=== PATIENT | male | born 1970 | race Caucasian/White ===

== ENCOUNTER 2016-05-03 03:08 | Emergency (ER) | payer OTHER ==
[~2016-05-03] VITALS: Ht 177.8 cm; Wt 79.5 kg
[2016-05-03 03:12] VITALS: Ht 177.8 cm; Wt 79.5 kg
--- NOTE | 2016-05-03 03:42 | ERD ---
ER Documentation Chief Complaint Date/Time DATE: 05/03/16 TIME: 03:41 Chief Complaint used "speed" yesterday, c/o swelling hands and feet HPI This is a 47 mL studies methamphetamines yesterday. Complains of swelling of his hands and feet today. Patient has decided to leave the hospital. He is alert and oriented 4 with goal oriented speech and good decision-making capacity. ROS All systems reviewed and are negative except as per history of present illness. Allergies Allergies: Coded Allergies: No Known Allergies (Verified Allergy, Mild, 07/10/11) PMhx/Soc History of Surgery: Yes (back surgery) Anesthesia Reaction: No Hx Neurological Disorder: No Hx Respiratory Disorders: No Hx Cardiac Disorders: No Hx Psychiatric Problems: No Hx Miscellaneous Medical Probl: No Hx Alcohol Use: Yes Hx Substance Use: No Hx Tobacco Use: Yes Physical Exam Vitals Vital Signs Date Time Temp Pulse Resp B/P Pulse Ox O2 Delivery O2 Flow Rate FiO2 05/03/16 03:12 97.8 102 18 136/89 96 Physical Exam Const: [] Head: Atraumatic Eyes: Normal Conjunctiva ENT: Normal External Ears, Nose and Mouth. Neck: Full range of motion..~ No meningismus. Resp: Clear to auscultation bilaterally Cardio: Regular rate and rhythm, no murmurs Abd: Soft, non tender, non distended. Normal bowel sounds Skin: No petechiae or rashes Back: No midline or flank tenderness Ext: No cyanosis, or edema Neur: Awake and alert Psych: Normal Mood and Affect Results 24 hrs Current Medications Medications (Trade) Dose Ordered Sig/[place] Route PRN Reason Start Time Stop Time Status Last Admin Dose Admin Lorazepam (Ativan) 2 mg ONCE ONCE IM 05/03/16 04:00 05/03/16 04:01 Procedures/MDM Medical decision-making: Patient comes in essentially for methamphetamine abuse. He is a little prior to full treatment and evaluation. He is alert and oriented 4 with goal oriented speech prior to elopement Departure Diagnosis: Primary Impression: Drug use Condition: Stable TEE RÍOS May 03, 2016 03:42
[2016-05-03] MEDS ORDERED: LORAZEPAM 2 MG INJ IM ONE (04:00)
== END 2016-05-03 04:02 | disposition left against medical advice (07) ==
LOC: E/R 03:08
DX: F15.20 Other stimulant dependence, uncomplicated (principal); F17.210 Nicotine dependence, cigarettes, uncomplicated
CPT/HCPCS: 99282; J2060

== ENCOUNTER 2016-07-30 04:15 | Emergency (ER) | payer OTHER ==
[~2016-07-30] VITALS: Ht 177.8 cm; Wt 75.0 kg
[2016-07-30 04:37] VITALS: Ht 177.8 cm; Wt 75.0 kg
[2016-07-30] MEDS ORDERED: KETOROLAC 30 MG INJ IV STA (04:41)
--- NOTE | 2016-07-30 05:27 | RADRPT ---
PROCEDURE: CT Abdomen and pelvis without contrast. CLINICAL INDICATION: Abdominal pain. TECHNIQUE: CT scan of the abdomen and pelvis was performed on a multi-detector high-resolution CT scanner. Contiguous axial images were obtained from the lung bases to the ischial tuberosities wit hout intravenous contrast. Coronal and sagittal reformatted images were also obtained. Images were reviewed on the PACS workstation. One or more of the following dose reduction techniques were used: - Automated exposure control. - Adjustment of the mA and/or kV according to patient size. - Use of iterative reconstruction technique. Exam CTD/vol = 7.66 mGy. Total exam DLP = 462.82 mGy-cm. COMPARISON: None. FINDINGS: Evaluation of the lung bases demonstrates no pleural or parenchymal disease. Abdomen: The liver is normal in size. There is no focal mass or dilatation of the biliary tree. T he gallbladder is not distended. The spleen, pancreas and bilateral adrenal glands are within dilshad l limits. Bilateral kidneys are normal in size with no contour deforming mass identified. There is a 2 mm calculus within the upper pole of the right kidney. There are two calculi within the mid le ft kidney measuring 4 mm and 2 mm. There is no radiopaque ureteral calculus identified. There is n o hydronephrosis or hydroureter. There is no retroperitoneal adenopathy. The abdominal aorta is of normal caliber with scattered atherosclerotic calcifications. There is no abnormal bowel wall thickening or distension. There is no bowel obstruction or free air . A normal appendix is partially visualized. There is no diverticulosis or diverticulitis. There is no ascites. Pelvis: The bladder is unremarkable. The prostate and seminal vesicles are within normal limits. There is no significant pelvic adenopathy or free fluid. Evaluation of the osseous structures demonstrates no suspicious lytic or blastic lesion. There is mo derate discogenic disease at L3-L4, L4-L5 and L5-S1. IMPRESSION: No acute abnormality identified within the abdomen and pelvis. Bilateral nonobstructing renal calculi. Mild vascular calcifications reflective of atherosclerosis. .Jerson Kaplan MD, Date Time Electronically viewed and signed by .Jerson Kaplan MD, MD on 07/30/2016 05:26 .T/
[2016-07-30 05:34] LABS: ADD SCAN DIFF NO
[2016-07-30 05:37] LABS: BASOPHILS % 0.3 % (0.0-2.0); EOSINOPHILS % 0.5 % (0.0-7.0); HEMOGLOBIN 15.4 g/dl (14.0-18.0); LYMPHOCYTES # 1.5 10^3/ul (0.8-2.9); LYMPHOCYTES % 19.7 % (15.0-51.0); MEAN CORPUSCULAR HEMOGLOBIN 30.7 pg (29.0-33.0); MEAN CORPUSCULAR HGB CONC 34.2 g/dl (32.0-37.0); MEAN CORPUSCULAR VOLUME 89.8 fl (82.0-101.0); MEAN PLATELET VOLUME 9.7 fl (7.4-10.4); MONOCYTE # 0.3 10^3/ul (0.3-0.9); MONOCYTES % 4.2 % (0.0-11.0); NEUTROPHIL # 5.8 10^3/ul (1.6-7.5); PLATELET COUNT 311 10^3/UL (140-415); RED BLOOD COUNT 5.01 10^6/ul (4.70-6.10); RED CELL DISTRIBUTION WIDTH 12.4 % (11.5-14.5); WHITE BLOOD COUNT 7.7 10^3/ul (4.8-10.8)
[2016-07-30 05:53] LABS: ALBUMIN/GLOBULIN RATIO 1.17; BILIRUBIN,INDIRECT 0.4 mg/dl (0-1.1); BILIRUBIN,TOTAL 0.4 mg/dl (0.2-1.3); CALCIUM 9.5 mg/dl (8.4-10.2); CREATININE 0.8 mg/dl (0.61-1.24); POTASSIUM 3.6 mmol/L (3.5-5.1); TOTAL PROTEIN 7.4 g/dl (6.1-8.1)
[2016-07-30] MEDS ORDERED: IBUP-1542 PO (05:59)
[2016-07-30] MEDS ORDERED: LOPE2CAP PO (05:59)
[2016-07-30] MEDS ORDERED: ONDANSETRON 4 MG INJ IV ONE (06:00)
[2016-07-30] MEDS ORDERED: HYDROCODONE/APAP (10/325) TAB PO ONE (06:00)
--- NOTE | 2016-07-30 06:18 | ERA ---
ER Documentation Chief Complaint Date/Time DATE: 07/30/16 TIME: 06:15 Chief Complaint Abdominal pain HPI The patient is a 46-year-old male, presenting to the ER because of diffuse abdominal discomfort, associated with diarrhea for the last few hours. He denies any emesis hematochezia, denies fever, chills, neck pain, chest pain, dyspnea, vomiting, dysuria. He smokes and drinks, denies illicit drug Past medical history: None Past surgical history: Back surgery ROS All systems reviewed and are negative except as per history of present illness. Medications Home Meds Active Scripts Loperamide Hcl* (Imodium*) 2 Mg Capsule, 2 MG PO QID Y for DIARRHEA, #14 CAP MAX 16 mg/day Prov:PAOLA NELSON MD 07/30/16 Ibuprofen* (Motrin*) 600 Mg Tab, 600 MG PO Q6H Y for PAIN AND OR ELEVATED TEMP, #20 TAB Prov:PAOLA NELSON MD 07/30/16 Allergies Allergies: Coded Allergies: No Known Allergies (Unverified Allergy, Mild, 07/30/16) PMhx/Soc History of Surgery: Yes (back surgery) Anesthesia Reaction: No Hx Neurological Disorder: No Hx Respiratory Disorders: No Hx Cardiac Disorders: No Hx Psychiatric Problems: No Hx Miscellaneous Medical Probl: Yes (hep C, colitis) Hx Alcohol Use: No (denies) Hx Substance Use: Yes (speed) Hx Tobacco Use: Yes Smoking Status: Current every day smoker Physical Exam Vitals Vital Signs Date Time Temp Pulse Resp B/P Pulse Ox O2 Delivery O2 Flow Rate FiO2 07/30/16 04:37 97.6 75 18 161/104 100 Physical Exam Const: No acute distress. Head: Atraumatic. Eyes: Normal Conjunctiva. ENT: Normal External Ears, Nose and Mouth. Neck: Full range of motion. No meningismus. Resp: Clear to auscultation bilaterally. Cardio: Regular rate and rhythm, no murmurs. Abd: Soft, non distended, normal bowel sounds, vague and diffuse abdominal discomfort, no rigidity, rebound, CVA tenderness Skin: No petechiae or rashes. Back: No midline or flank tenderness. Ext: No cyanosis, or edema. Neur: Awake and alert. No focal deficit Psych: Normal Mood and Affect. Result Diagram: 07/30/169 07/30/16448 Results 24 hrs Laboratory Tests Test 07/30/16 04:49 White Blood Count 7.710^3/ul Red Blood Count 5.0110^6/ul Hemoglobin 15.4g/dl Hematocrit 45.0% Mean Corpuscular Volume 89.8fl Mean Corpuscular Hemoglobin 30.7pg Mean Corpuscular Hemoglobin Concent 34.2g/dl Red Cell Distribution Width 12.4% Platelet Count 00803^3/UL Mean Platelet Volume 9.7fl Neutrophils % 75.0% Lymphocytes % 19.7% Monocytes % 4.2% Eosinophils % 0.5% Basophils % 0.3% Nucleated Red Blood Cells % 0.0/100WBC Neutrophils # 5.810^3/ul Lymphocytes # 1.510^3/ul Monocytes # 0.310^3/ul Eosinophils # 0.010^3/ul Basophils # 0.010^3/ul Nucleated Red Blood Cells # 0.010^3/ul Sodium Level 135mmol/L Potassium Level 3.6mmol/L Chloride Level 101mmol/L Carbon Dioxide Level 27mmol/L Anion Gap 11 Blood Urea Nitrogen 17mg/dl Creatinine 0.80mg/dl Glucose Level 127mg/dl Calcium Level 9.5mg/dl Total Bilirubin 0.4mg/dl Direct Bilirubin 0.00mg/dl Indirect Bilirubin 0.4mg/dl Aspartate Amino Transf (AST/SGOT) 35IU/L Alanine Aminotransferase (ALT/SGPT) 49IU/L Alkaline Phosphatase 150IU/L Total Protein 7.4g/dl Albumin 4.0g/dl Globulin 3.40g/dl Albumin/Globulin Ratio 1.17 Lipase 95U/L Current Medications Medications (Trade) Dose Ordered Sig/[place] Route PRN Reason Start Time Stop Time Status Last Admin Dose Admin Ketorolac Tromethamine (Toradol) 30 mg ONCE STAT IV 07/30/16 04:41 07/30/16 04:42 DC 07/30/16 04:54 Acetaminophen/ Hydrocodone Bitart ([place] (10/325)) 1 tab ONCE ONCE PO 07/30/16 06:00 07/30/16 06:01 DC Ondansetron HCl (Zofran Inj) 4 mg ONCE ONCE IV 07/30/16 06:00 07/30/16 06:01 DC Procedures/[place] [address] Radiology Main Line: [phone] DIAGNOSTIC IMAGING REPORT Patient: DANIELLE HALLMAN : 1970 Age: 46 Sex: M MR #: [id number] [facility] #: [id number] DOS: 07/30/16 0440 Ordering MD: PAOLA NELSON MD Location: E/R Room/Bed: PROCEDURE: CT Abdomen and pelvis without contrast. CLINICAL INDICATION: Abdominal pain. TECHNIQUE: CT scan of the abdomen and pelvis was performed on a multi- detector high-resolution CT scanner. Contiguous axial images were obtained from the lung bases to the ischial tuberosities without intravenous contrast. Coronal and sagittal reformatted images were also obtained. Images were reviewed on the PACS workstation. One or more of the following dose reduction techniques were used: - Automated exposure control. - Adjustment of the mA and/or kV according to patient size. - Use of iterative reconstruction technique. Exam CTD/vol = 7.66 mGy. Total exam DLP = 462.82 mGy-cm. COMPARISON: None. FINDINGS: Evaluation of the lung bases demonstrates no pleural or parenchymal disease. Abdomen: The liver is normal in size. There is no focal mass or dilatation of the biliary tree. The gallbladder is not distended. The spleen, pancreas and bilateral adrenal glands are within normal limits. Bilateral kidneys are normal in size with no contour deforming mass identified. There is a 2 mm calculus within the upper pole of the right kidney. There are two calculi within the mid left kidney measuring 4 mm and 2 mm. There is no radiopaque ureteral calculus identified. There is no hydronephrosis or hydroureter. There is no retroperitoneal adenopathy. The abdominal aorta is of normal caliber with scattered atherosclerotic calcifications. There is no abnormal bowel wall thickening or distension. There is no bowel obstruction or free air. A normal appendix is partially visualized. There is no diverticulosis or diverticulitis. There is no ascites. Pelvis: The bladder is unremarkable. The prostate and seminal vesicles are within normal limits. There is no significant pelvic adenopathy or free fluid. Evaluation of the osseous structures demonstrates no suspicious lytic or blastic lesion. There is moderate discogenic disease at L3-L4, L4-L5 and L5-S1. IMPRESSION: No acute abnormality identified within the abdomen and pelvis. Bilateral nonobstructing renal calculi. Mild vascular calcifications reflective of atherosclerosis. .Jerson Kaplan MD, Date Time Electronically viewed and signed by .Jerson Kaplan MD, on 07/30/2016 05:26 .T/ CC: PAOLA NELSON MD MEDICAL MAKING DECISION: The patient is a 46-year-old male, presenting with acute abdominal pain with diarrhea of unclear etiology. He was treated with Toradol 30 mg IV and [place] 10 mg p.o. for pain and Zofran 4 mg IV for now some with good response The differential diagnoses considered include but are not limited to cholelithiasis, cholecystitis, cystitis, pancreatitis, hepatitis, gastritis, peptic ulcer disease, gastric ulcer, appendicitis, diverticulitis, cholangitis, choledocholithiasis, partial small bowel obstruction. Departure Diagnosis: Primary Impression: Abdominal pain Condition: Good Patient Instructions: Abdominal Pain Referrals: [facility] YOU HAVE RECEIVED A MEDICAL SCREENING EXAM AND THE RESULTS INDICATE THAT YOU DO NOT HAVE A CONDITION THAT REQUIRES URGENT TREATMENT IN THE EMERGENCY DEPARTMENT. FURTHER EVALUATION AND TREATMENT OF YOUR CONDITION CAN WAIT UNTIL YOU ARE SEEN IN YOUR DOCTORS OFFICE WITHIN THE NEXT 1-2 DAYS. IT IS YOUR RESPONSIBILITY TO MAKE AN APPOINTMENT FOR FOLOW-UP CARE. IF YOU HAVE A PRIMARY DOCTOR --you should call your primary doctor and schedule an appointment IF YOU DO NOT HAVE A PRIMARY DOCTOR YOU CAN CALL OUR PHYSICIAN REFERRAL HOTLINE AT IF YOU CAN NOT AFFORD TO SEE A PHYSICIAN YOU CAN CHOSE FROM THE FOLLOWING [facility] [address] [facility] [address] [facility] [address] [facility] [address] [facility] [address] [facility]. [address] Additional Instructions: Call your primary care doctor TOMORROW for an appointment during the next 1-2 days.See the doctor sooner or return here if your condition worsens before your appointment time. He was discharged with Motrin, Zofran, Imodium The patient's blood pressure was elevated (>120/80) but appears stable without evidence of hypertension emergency or urgency. The patient was counseled about the risks of hypertension and urged to pursue outpatient monitoring and therapy within a week with their primary care physician. PAOLA NELSON MD July 30, 2016 06:18
[2016-07-30 07:09] VITALS: BP 197/129; PULSE 69; RESP 14
== END 2016-07-30 07:11 | disposition home or self-care (01) ==
LOC: E/R 04:15
DX: R10.84 Generalized abdominal pain (principal); R40.2252 Coma scale, best verbal response, oriented, at arrival to emergency department; F17.210 Nicotine dependence, cigarettes, uncomplicated; R40.2142 Coma scale, eyes open, spontaneous, at arrival to emergency department; R40.2362 Coma scale, best motor response, obeys commands, at arrival to emergency department
CPT/HCPCS: 36415; 74176; 80053; 83690; 85025; 96374; 96375; J1885; J2405; Z7502; Z7610

== ENCOUNTER 2017-10-21 07:33 | Emergency (ER) | END 2017-10-21 09:48 | disposition home or self-care (01) ==

== ENCOUNTER 2018-08-08 11:22 | Emergency (ER) | payer SELFPAY ==
[~2018-08-08] VITALS: Wt 85.0 kg
[~2018-08-08 11:22] MED LIST: CEPH-443 PO; IBUP-1542 PO; LOPE2CAP PO; SULF1TAB31 PO
[2018-08-08 11:28] VITALS: BP 140/99; PULSE 80; RESP 18
--- NOTE | 2018-08-08 11:37 | ERD ---
ER Documentation Chief Complaint Chief Complaint FOUND BY IN RV WITH SHALLOW RESPIRATION FROM OPIATE OD. NARCAN GIVEN HPI Patient is a 48-year-old male who presents with a heroin overdose. He was found by his not breathing. Paramedics were called. He was given 4 mg of Narcan intranasally and woke up and is now awake alert and oriented x3. Please were involved. Patient was brought in by ambulance but is now refusing any treatment at this time. ROS All systems reviewed and are negative except as per history of present illness. PMhx/Soc Medical and Surgical Hx: Unable to obtain FmHx Unable to obtain as patient is refusing Physical Exam Vitals Vital Signs Date Temp Pulse Resp B/P (MAP) Pulse Ox O2 O2 Flow FiO2 Time Delivery Rate 08/08/18 98.0 80 18 140/99 98 11:28 (113) Physical Exam Const: No acute distress Neur: Awake and alert Procedures/MDM Patient is a 48-year-old male who presents with a heroin overdose. The patient was given Narcan by paramedics and is now awake alert and oriented x3. He is answering questions appropriately and is refusing all treatment. He will be discharged but I did tell him that the Narcan that was given does not last as long as the heroin and that he could even slower stop his breathing again once the Narcan wears off. He understands the risks and still does not want to be seen or observed in the emergency department. He was instructed to stop heroin in the future. Departure Diagnosis: Primary Impression: Overdose Encounter type: initial encounter Injury intent: accidental or unintentional Qualified Codes: T50.901A - Poisoning by unspecified drugs, medicaments and biological substances, accidental (unintentional), initial encounter Condition: Fair Patient Instructions: Overdose, Accidental (Adult) Referrals: [facility] YOU HAVE RECEIVED A MEDICAL SCREENING EXAM AND THE RESULTS INDICATE THAT YOU DO NOT HAVE A CONDITION THAT REQUIRES URGENT TREATMENT IN THE EMERGENCY DEPARTMENT. FURTHER EVALUATION AND TREATMENT OF YOUR CONDITION CAN WAIT UNTIL YOU ARE SEEN IN YOUR DOCTORS OFFICE WITHIN THE NEXT 1-2 DAYS. IT IS YOUR RESPONSIBILITY TO MAKE AN APPOINTMENT FOR FOLOW-UP CARE. IF YOU HAVE A PRIMARY DOCTOR --you should call your primary doctor and schedule an appointment IF YOU DO NOT HAVE A PRIMARY DOCTOR YOU CAN CALL OUR PHYSICIAN REFERRAL HOTLINE AT IF YOU CAN NOT AFFORD TO SEE A PHYSICIAN YOU CAN CHOSE FROM THE FOLLOWING [facility] [address] [facility] [address] [facility] [facility] [address] [facility] [facility] [address] [facility] [facility] [address] [facility]. [facility] [address] Additional Instructions: Call your primary care doctor TOMORROW for an appointment during the next 1-2 days.See the doctor sooner or return here if your condition worsens before your appointment time. MARINA COLEY MD August 08, 2018 11:37
== END 2018-08-08 11:35 | disposition home or self-care (01) ==
LOC: MERGE 11:22 → E/R 11:22
DX: T50.7X1A Poisoning by analeptics and opioid receptor antagonists, accidental (unintentional), initial encounter (principal)
CPT/HCPCS: 99283